=== PATIENT | female | born 1995 | race Two or more races ===

== ENCOUNTER 2017-12-07 10:28 | Outpatient (CLI) | payer OTHER | END 2017-12-07 10:30 | disposition home or self-care (01) | LOC: SONOGRAMA 10:28 | DX: E04.1 Nontoxic single thyroid nodule (principal) ==

== ENCOUNTER 2018-11-01 11:27 | Outpatient (CLI) | payer OTHER | END 2018-11-01 11:30 | disposition home or self-care (01) | LOC: SONOGRAMA 11:27 | DX: E04.2 Nontoxic multinodular goiter (principal) ==

== ENCOUNTER 2020-03-18 05:35 | Day surgery (SDC) | payer OTHER ==
[~2020-03-18] VITALS: Ht 149.9 cm; Wt 46.3 kg
[2020-03-19] MEDS ORDERED: PERCOCET 5-3251 EACH PO (07:44)
== END 2020-03-19 08:00 | disposition home or self-care (01) ==
LOC: O/R 05:35 → CIR.AMB 05:35 → SURH 05:35 → O/R 10:42 → SURH 10:42 → CIR.AMB 03-19 08:00 → SURH 03-19 09:16 → O/R 03-19 09:16
PROVIDERS: ATTEND Surgery
DX: C73 Malignant neoplasm of thyroid gland (principal)